=== PATIENT | female | born 1990 | race Caucasian/White ===

== ENCOUNTER 2016-10-06 15:48 | Emergency (ER) | payer OTHER ==
[~2016-10-06] VITALS: Ht 175.3 cm; Wt 72.5 kg
[~2016-10-06 15:48] MED LIST: AZO95TAB3 PO; CIPR250T2 PO
[2016-10-06 15:52] VITALS: BP 103/74; PULSE 69; RESP 16; TEMP 98.4; O2SAT 98
[2016-10-06 16:11] LABS: BLOOD, URINE LARGE (NEG); GLUCOSE,URINE 250 mg/dL (NEG); KETONE, URINE 15 mg/dL (NEG)
[2016-10-06 16:13] LABS: NITRITE,URINE POS (NEG)
[2016-10-06 16:15] LABS: METHOD OF COLLECTION CLEAN CATCH; URINE COLOR ORANGE (YELLW/STRAW)
[2016-10-06 16:16] LABS: WBC, URINE INNUM /hpf (0-5)
[2016-10-06 16:17] LABS: RBC, URINE 100-200 /hpf (0-3)
[2016-10-06 16:18] LABS: COMMENT (UR) CULTURE INDICATED; CULTURE IF INDICATED CULTURE INDICATED; SQUAMOUS EPITHELIAL CELL URINE > 8 /hpf (0-5)
--- NOTE | 2016-10-06 16:26 | PD ---
HPI Chief Complaint: Complaint Time Seen by Provider: 16:21 Travel History International Travel<30 days: No Contact w/Intl Traveler<30days: No Traveled to known affect area: No History of Present Illness HPI 26-year-old female presents to the ED for approximately 24 hour history of dysuria, increased urinary urgency, increased urinary frequency. Symptoms onset gradually. Patient also endorses mild nausea and low back pain. She denies fever, chills, abdominal pain, vomiting, vaginal discharge, risk of . She denies chronic health problems and takes no daily medications. NKDA. PFSH Past Medical History Medical History: Denies Significant Hx Hx Anticoagulant Therapy: No Cardiovascular Problems: No Chemotherapy: No Cerebrovascular Accident: No Diabetes: No Diminished Hearing: No Respiratory: No Immunizations Current: Yes Tetanus Vaccination: > 5 Years Influenza Vaccination: No ?: Not LMP: 09/29/16 : 2 : 2 Past Surgical History Abdominal Surgery: Yes Hysterectomy: No Social History Alcohol Use: Yes (occ) Tobacco Use: No Substance Use: No Allergies-Medications (Allergen,Severity, Reaction): Coded Allergies: No Known Allergies (Verified , 03/10/16) Reported Meds & Prescriptions Reported Meds & Active Scripts Active No Active Prescriptions or Reported Medications Review of Systems Except as stated in HPI: all other systems reviewed are Neg Physical Exam Narrative GENERAL: Well-nourished, well-developed nontoxic appearing white female in no acute distress. SKIN: Focused skin assessment warm/dry. HEAD: Normocephalic. EYES: No scleral icterus. No injection or drainage. NECK: Supple, trachea midline. No JVD or lymphadenopathy. CARDIOVASCULAR: Regular rate and rhythm without murmurs, gallops, or rubs. RESPIRATORY: Breath sounds equal bilaterally. No accessory muscle use. GASTROINTESTINAL: Abdomen soft, nondistended. [id number] suprapubic tenderness. MUSCULOSKELETAL: No cyanosis, or edema. Patient is ambulatory and moves extremities spontaneously. BACK: Nontender without obvious deformity. No CVA tenderness. Data Data Last Documented VS Vital Signs Date Time Temp Pulse Resp B/P Pulse Ox O2 Delivery O2 Flow Rate FiO2 10/06/16 15:52 98.4 69 16 103/74 98 Orders Urinalysis - C+S If Indicated (10/06/16 15:55) Ed Urine Pregnancytest Poc (10/06/16 16:03) Urine Culture (10/06/16 16:00) Sulfamet-Trimeth Ds 800-160 Mg (Bactrim (10/06/16 16:30) Phenazopyridine (Pyridium) (10/06/16 16:30) Ondansetron Odt (Zofran Odt) (10/06/16 16:30) Labs Laboratory Tests Test 10/06/16 16:00 Urine Collection Type CLEAN CATCH Urine Color ORANGE Urine Turbidity MOD Urine pH 5.0 Urine Specific [place] 1.025 Urine Protein 300 OR GREATER mg/dL Urine Glucose (UA) 250 mg/dL Urine Ketones 15 mg/dL Urine Occult Blood LARGE Urine Nitrite POS Urine Bilirubin NEG Urine Leukocyte Esterase MOD Urine RBC 100-200 /hpf Urine WBC INNUM /hpf Urine WBC Clumps OCC Urine Squamous Epithelial > 8 /hpf Cells Microscopic Urinalysis Comment CULTURE INDICATED Urine Collection Time 1600 MDM Medical Decision Making Medical Screen Exam Complete: Yes Emergency Medical Condition: Yes Differential Diagnosis Cystitis versus pyelonephritis versus nephroureterolithiasis versus STI versus other Narrative Course 26-year-old female presents to the ED for approximately 24 hour history of dysuria, increased urinary urgency, increased urinary frequency. Symptoms onset gradually. Patient also endorses mild nausea and low back pain. She denies fever, chills, abdominal pain, vomiting, vaginal discharge, risk of . Vitals reviewed. Physical exam reveals a nontoxic-appearing white female in no acute distress. There is mild suprapubic tenderness but remaining exam is otherwise unremarkable. Urine test negative. UA shows orange urine with 15 ketones, large occult blood, positive nitrate, moderate leukocyte esterase, 100-200 RBCs, innumerable WBCs, occasional WBC clumps. Culture pending. This is acute hemorrhagic cystitis. Patient was administered a dose of Pyridium, Zofran and Bactrim DS. She is prescribed Bactrim DS twice a day 5 days. She is instructed take all medication as prescribed, even if her symptoms resolve, follow up with the primary care provider. She indicated understanding of instructions and was amenable to plan of care. She is stable and discharged home. Diagnosis Primary Impression: Acute hemorrhagic cystitis Referrals: Primary Care Physician Patient Instructions: General Instructions, Urinary Tract Infection in Women ( ED) Additional Instructions: Rest, hydrate. Take all antibiotics as prescribed, even if your symptoms resolve. Continue with AZO for 24 hours. Follow-up with your primary care provider this week. Return to the ED for any urgent or emergent medical condition. Med/Other Pt SpecificInfo: Prescription(s) given Scripts Sulfamethoxazole-Trimethoprim (Bactrim DS)800-160 Mg Tab1 Tab PO BID 5 Days Ref 0 Prov:Claribel Hartman MD 10/06/16 Disposition: 01 DISCHARGE HOME Condition: Stable Bess Kendlal Oct 06, 2016 16:26
[2016-10-06] MEDS ORDERED: BACT800T5 PO (16:27)
[2016-10-06] MEDS ORDERED: ONDANSETRON ODT 4 MG TAB PO ONE (16:30)
[2016-10-06] MEDS ORDERED: PHENAZOPYRIDINE HCL 200 MG TAB PO ONE (16:30)
[2016-10-06] MEDS ORDERED: SULFAMETHOXAZOLE-TRIMETHOPRIM DS 800-160 MG TAB PO ONE (16:30)
== END 2016-10-06 16:43 | disposition home or self-care (01) ==
LOC: PHEFT 15:48
DX: N30.01 Acute cystitis with hematuria (principal)
CPT/HCPCS: 81001; 84703; 87086; 99283

== ENCOUNTER 2016-11-10 15:40 | Emergency (ER) | payer OTHER ==
[~2016-11-10] VITALS: Ht 175.3 cm; Wt 74.2 kg
[~2016-11-10 15:40] MED LIST changes: -AZO95TAB3 PO; +BACT800T5 PO; -CIPR250T2 PO
[2016-11-10 15:44] VITALS: TEMP 98.2
--- NOTE | 2016-11-10 16:05 | PD ---
HPI Chief Complaint: Complaint Time Seen by Provider: 16:03 Travel History International Travel<30 days: No Contact w/Intl Traveler<30days: No Traveled to known affect area: No History of Present Illness HPI 26-year-old female with history of frequent UTIs, presents to the ER today with several days' history of dysuria, urinary urgency, lower back pains, nausea, vomiting. She states that it feels like a UTI. She denies any discharge, fevers, or any other symptoms. She currently rates the discomfort in her back at a 7 out of 10. Modifying Factors: None Associated Signs & Symptoms: Lower back pains, nausea, vomiting, abdominal discomfort, urinary symptoms Risk Factors: History of frequent UTIs PFSH Past Medical History Hx Anticoagulant Therapy: No Cardiovascular Problems: No Chemotherapy: No Cerebrovascular Accident: No Diabetes: No Diminished Hearing: No Genitourinary: Yes (Frequent UTI's) Respiratory: No Immunizations Current: Yes Tetanus Vaccination: > 5 Years Influenza Vaccination: No ?: Not LMP: 2 weeks : 2 : 2 Past Surgical History Surgical History: No Previous Surgery Abdominal Surgery: Yes Hysterectomy: No Social History Alcohol Use: No Tobacco Use: No Substance Use: No Allergies-Medications (Allergen,Severity, Reaction): Coded Allergies: No Known Allergies (Verified , 11/10/16) Reported Meds & Prescriptions Reported Meds & Active Scripts Active No Active Prescriptions or Reported Medications Review of Systems Except as stated in HPI: all other systems reviewed are Neg Physical Exam Narrative GENERAL: Well-developed young white female patient currently in mild distress. Awake and oriented 3. SKIN: Focused skin assessment warm/dry. HEAD: Atraumatic. Normocephalic. EYES: Pupils equal and round. No scleral icterus. No injection or drainage. ENT: No nasal bleeding or discharge. Mucous membranes pink and moist. NECK: Trachea midline. No JVD. CARDIOVASCULAR: Regular rate and rhythm. No murmur appreciated. RESPIRATORY: No accessory muscle use. Clear to auscultation. Breath sounds equal bilaterally. GASTROINTESTINAL: Abdomen soft, mild suprapubic tenderness without guarding or rebound, nondistended. Hepatic and splenic margins not palpable. BACK: No CVA tenderness. No rash. No point tenderness on palpation of the spine. MUSCULOSKELETAL: No obvious deformities. No clubbing. No cyanosis. No edema. NEUROLOGICAL: Awake and alert. No obvious cranial nerve deficits. Motor grossly within normal limits. Normal speech. PSYCHIATRIC: Appropriate mood and affect; insight and judgment normal. Data Data Last Documented VS Vital Signs Date Time Temp Pulse Resp B/P Pulse Ox O2 Delivery O2 Flow Rate FiO2 11/10/16 15:44 98.2 Orders Urinalysis - C+S If Indicated (11/10/16 15:48) Ed Urine Pregnancytest Poc (11/10/16 16:00) Urine Culture (11/10/16 15:50) Labs Laboratory Tests Test 11/10/16 15:50 Urine Color ORANGE Urine Turbidity CLEAR Urine pH 5.5 Urine Specific [place] 1.030 Urine Protein 30 mg/dL Urine Glucose (UA) 100 mg/dL Urine Ketones TRACE mg/dL Urine Occult Blood NEG Urine Nitrite POS Urine Bilirubin NEG Urine Leukocyte Esterase NEG Urine RBC 0-3 /hpf Urine WBC 9-14 /hpf Urine Squamous Epithelial > 8 /hpf Cells Urine Bacteria FEW /hpf Urine Mucus MANY /lpf Microscopic Urinalysis Comment CULTURE INDICATED MDM Medical Decision Making Medical Screen Exam Complete: Yes Emergency Medical Condition: Yes Medical Record Reviewed: Yes Interpretation(s) Laboratory Tests Test 11/10/16 15:50 Urine Color ORANGE (YELLW/STRAW) Urine Protein 30 mg/dL (NEG-TRACE) Urine Glucose (UA) 100 mg/dL (NEG) Urine Ketones TRACE mg/dL (NEG) Urine Nitrite POS (NEG) Urine WBC 9-14 /hpf (0-5) Urine Squamous Epithelial > 8 /hpf (0-5) Cells Urine Bacteria FEW /hpf (NONE) Urine Mucus MANY /lpf (OCC) Differential Diagnosis Dysuria, back pains, nausea and vomiting, urinary symptomsUTI versus musculoskeletal Narrative Course Abdomen is benign and I do not suspect an acute intra-abdominal process. Patient has clear urinary symptoms and UA shows UTI. At this point, my plan would be to treat her UTI and have her follow-up with primary care physician. Return for any worsening in symptoms as necessary. The plan has been discussed with her and she states understanding. Diagnosis Primary Impression: Urinary tract infection Med/Other Pt SpecificInfo: Prescription(s) given Scripts Ondansetron Odt (Zofran Odt)4 Mg Tab4 Mg SL Q6HR PRN (Nausea/Vomiting) #5 TAB Ref 0 Prov:Vj Berg MD 11/10/16 Sulfamethoxazole-Trimethoprim (Bactrim DS)800-160 Mg Tab1 Tab PO BID #14 TAB Ref 0 Prov:Vj Berg MD 11/10/16 Phenazopyridine (Pyridium)100 Mg Orw610 Mg PO Q8H PRN (DYSURIA) #15 TAB Ref 0 Prov:Vj Berg MD 11/10/16 Disposition: 01 DISCHARGE HOME Condition: Stable Vj Berg MD November 10, 2016 16:05
[2016-11-10 16:14] LABS: BLOOD, URINE NEG (NEG); GLUCOSE,URINE 100 mg/dL (NEG); KETONE, URINE TRACE mg/dL (NEG); PH, URINE 5.5 (5.0-8.5)
[2016-11-10 16:25] LABS: NITRITE,URINE POS (NEG); URINE COLOR ORANGE (YELLW/STRAW)
[2016-11-10 16:26] LABS: BACTERIA, URINE FEW /hpf; MUCUS URINE MANY /lpf (OCC); RBC, URINE 0-3 /hpf (0-3); SQUAMOUS EPITHELIAL CELL URINE > 8 /hpf (0-5)
[2016-11-10 16:27] LABS: COMMENT (UR) CULTURE INDICATED; CULTURE IF INDICATED CULTURE INDICATED
[2016-11-10] MEDS ORDERED: ZOFR4TAB3 SL (16:37)
[2016-11-10] MEDS ORDERED: PHEN0.4T PO (16:37)
[2016-11-10] MEDS ORDERED: BACT800T5 PO (16:37)
[2016-11-10] MEDS ORDERED: SULFAMETHOXAZOLE-TRIMETHOPRIM DS 800-160 MG TAB PO ONE (16:45)
[2016-11-10] MEDS ORDERED: PHENAZOPYRIDINE HCL 100 MG TAB PO ONE (16:45)
[2016-11-10] MEDS ORDERED: ONDANSETRON ODT 4 MG TAB PO ONE (16:45)
== END 2016-11-10 17:01 | disposition home or self-care (01) ==
LOC: PHED 15:40
DX: N39.0 Urinary tract infection, site not specified (principal); Z87.440 Personal history of urinary (tract) infections
CPT/HCPCS: 81001; 84703; 87086; 99283

== ENCOUNTER 2017-07-31 02:19 | Emergency (ER) | payer OTHER ==
[~2017-07-31] VITALS: Ht 175.3 cm; Wt 77.5 kg
[~2017-07-31 02:19] MED LIST changes: +PHEN0.4T PO; +ZOFR4TAB3 SL
[2017-07-31 02:26] VITALS: BP 136/93; PULSE 109; RESP 14; TEMP 98.6; O2SAT 100
[2017-07-31 03:01] LABS: AUTOMATED NEUTROPHIL # 9.5 TH/MM3 (1.8-7.7); BASOPHIL # 0.3 TH/MM3 (0-0.2); BASOPHIL % 2.1 % (0.0-2.0); EOSINOPHIL # 0.1 TH/MM3 (0-0.4); EOSINOPHIL % 1.1 % (0.0-4.0); HEMATOCRIT 39.8 % (35.0-46.0); LYMPH % 16.7 % (9.0-44.0); LYMPHOCYTE # 2.1 TH/MM3 (1.0-4.8); MEAN CELL VOLUME 88.1 FL (80.0-100.0); MEAN CORPUSCULAR HEMOGLOBIN 28.9 PG (27.0-34.0); MEAN CORPUSCULAR HGB CONC 32.7 % (32.0-36.0); MEAN PLATELET VOLUME 9.1 FL (7.0-11.0); MONOCYTE # 0.8 TH/MM3 (0-0.9); NEUT % 74.1 % (16.0-70.0); PLATELET COUNT 289 TH/MM3 (150-450); RED BLOOD COUNT 4.52 MIL/MM3 (4.00-5.30); RED CELL DISTRIBUTION WIDTH 12.5 % (11.6-17.2); WHITE BLOOD COUNT 12.8 TH/MM3 (4.0-11.0)
[2017-07-31 03:17] LABS: CALCIUM 8.9 MG/DL (8.5-10.1)
[2017-07-31 03:18] LABS: BICARBONATE 27.9 MEQ/L (21.0-32.0); INTERNATIONAL NORMALIZED RATIO 0.9 RATIO; PROTHROMBIN TIME - PATIENT 9.1 SEC (9.8-11.6)
[2017-07-31 03:21] LABS: CREATININE 0.55 MG/DL (0.50-1.00)
--- NOTE | 2017-07-31 04:46 | PD ---
HPI Chief Complaint: Tool/Die Maker Problem/Complaint Time Seen by Provider: 03:01 Travel History International Travel<30 days: No Contact w/Intl Traveler<30days: No Traveled to known affect area: No History of Present Illness HPI PATIENT STATES THAT SHE WENT TO AN CLINIC IN [place] TO TERMINATE A (11 WEEKS GESTATION)...PER PATIENT SHE HAS HAD 3 ELECTIVE AB'S IN HER LIFETIME AND THIS IS THE FIRST ONE TO DO THIS. PATIENT RETURNS C/O HEAVY VAGINAL BLEEDING....PATIENT STATES SHE IS RH NEG AND WAS GIVEN RHOGAM AT CLINIC. DENIES DIZZINESS/LIGHTHEADED/N/V/D/PRAKASH/CP/BACKPAIN/ PFSH Past Medical History Hx Anticoagulant Therapy: No Cardiovascular Problems: No Chemotherapy: No Cerebrovascular Accident: No Diabetes: No Diminished Hearing: No Genitourinary: Yes (Frequent UTI's) Respiratory: No Immunizations Current: Yes Tetanus Vaccination: < 5 Years Influenza Vaccination: No ?: Not LMP: BLEEDING NOW : 3 : 3 Past Surgical History Abdominal Surgery: Yes Gynecologic Surgery: Yes ( X 3) Hysterectomy: No Social History Alcohol Use: No Tobacco Use: No Substance Use: No Allergies-Medications (Allergen,Severity, Reaction): Coded Allergies: No Known Allergies (Verified Adverse Reaction, Unknown, 07/31/17) Reported Meds & Prescriptions Reported Meds & Active Scripts Active Review of Systems General / Constitutional: No: Fever Eyes: No: Visual changes HENT: No: Headaches Cardiovascular: No: Chest Pain or Discomfort Respiratory: No: Shortness of Breath Gastrointestinal: No: Abdominal Pain Genitourinary: Positive: Vaginal Bleeding Musculoskeletal: No: Pain Skin: No Rash Neurologic: No: Weakness Psychiatric: No: Depression Endocrine: No: Polydipsia Hematologic/Lymphatic: No: Easy Bruising Physical Exam Narrative GENERAL: SKIN: Warm and dry. HEAD: Atraumatic. Normocephalic. EYES: Pupils equal and round. No scleral icterus. No injection or drainage. ENT: No nasal bleeding or discharge. Mucous membranes pink and moist. NECK: Trachea midline. No JVD. CARDIOVASCULAR: Regular rate and rhythm. RESPIRATORY: No accessory muscle use. Clear to auscultation. Breath sounds equal bilaterally. GASTROINTESTINAL: Abdomen soft, non-tender, nondistended. MUSCULOSKELETAL: Extremities without clubbing, cyanosis, or edema. No obvious deformities. NEUROLOGICAL: Awake and alert. No obvious cranial nerve deficits. Motor grossly within normal limits. Five out of 5 muscle strength in the arms and legs. Normal speech. PSYCHIATRIC: Appropriate mood and affect; insight and judgment normal. Data Data Last Documented VS Vital Signs Date Time Temp Pulse Resp B/P (MAP) Pulse Ox O2 Delivery O2 Flow Rate FiO2 07/31/17 02:26 98.6 109 14 136/93 (107) 100 Orders Orders Complete Blood Count With Diff (07/31/17 02:36) Basic Metabolic Panel (Bmp) (07/31/17 02:36) Prothrombin Time / Inr (Pt) (07/31/17 02:36) Act Partial Throm Time (Ptt) (07/31/17 02:36) Complete Rh (07/31/17 02:36) Us Pelvis Comp Tool/Die Maker/Non-Preg (07/31/17 03:03) Ed Discharge Order (07/31/17 05:26) Labs Laboratory Tests Test 07/31/17 02:50 White Blood Count 12.8 TH/MM3 Red Blood Count 4.52 MIL/MM3 Hemoglobin 13.0 GM/DL Hematocrit 39.8 % Mean Corpuscular Volume 88.1 FL Mean Corpuscular Hemoglobin 28.9 PG Mean Corpuscular Hemoglobin Concent 32.7 % Red Cell Distribution Width 12.5 % Platelet Count 289 TH/MM3 Mean Platelet Volume 9.1 FL Neutrophils (%) (Auto) 74.1 % Lymphocytes (%) (Auto) 16.7 % Monocytes (%) (Auto) 6.0 % Eosinophils (%) (Auto) 1.1 % Basophils (%) (Auto) 2.1 % Neutrophils # (Auto) 9.5 TH/MM3 Lymphocytes # (Auto) 2.1 TH/MM3 Monocytes # (Auto) 0.8 TH/MM3 Eosinophils # (Auto) 0.1 TH/MM3 Basophils # (Auto) 0.3 TH/MM3 CBC Comment DIFF FINAL Differential Comment Prothrombin Time 9.1 SEC Prothromb Time International Ratio 0.9 RATIO Activated Partial Thromboplast Time 21.5 SEC Blood Urea Nitrogen 15 MG/DL Creatinine 0.55 MG/DL Random Glucose 102 MG/DL Calcium Level 8.9 MG/DL Sodium Level 139 MEQ/L Potassium Level 3.7 MEQ/L Chloride Level 104 MEQ/L Carbon Dioxide Level 27.9 MEQ/L Anion Gap 7 MEQ/L Estimat Glomerular Filtration Rate 133 ML/MIN MDM Medical Decision Making Medical Screen Exam Complete: Yes Emergency Medical Condition: Yes Medical Record Reviewed: Yes Differential Diagnosis RPOC V INCOMPLETE AB Narrative Course HEMODYNAMICALLY STABLE, H/H NORMAL , NORMAL LIVER/KIDNEY/ FUNCTIONS...ULTRASOUND SHOWS A THICKENED ENDOMETRIAL STRIPE Diagnosis Primary Impression: Incomplete without complications Patient Instructions: General Instructions, Miscarriage (ED) Departure Forms: Tests/Procedures, Work Release Enter return to work date: Aug 04, 2017 Additional Instructions: FOLLOW UP WITH CLINIC FOR REEVALUATION, TODAY YOUR ULTRASOUND SHOWED PRODUCTS OF CONCEPTION ARE STILL REMAINING IN UTERUS. YOU WILL SPONTANEOUSLY PASS THEM ON YOUR OWN OR YOU CAN RETURN TO CLINIC FOR POSSIBLE REPEAT PROCEDURE. Scripts Tramadol (Ultram) 50 Mg Tab 50 MG PO Q6H Y for PAIN, #14 TAB 0 Refills Prov: Adolfo Noble MD 07/31/17 Disposition: 01 DISCHARGE HOME Condition: Stable Adolfo Noble MD Jul 31, 2017 04:46
--- NOTE | 2017-07-31 05:20 | RADRPT ---
EXAM DATE/TIME: 07/31/2017 04:01 [facility] COMPARISON: No previous studies available for comparison. INDICATIONS : Pelvic pain and bleeding. MEDICAL HISTORY : UTIs. SURGICAL HISTORY : x3. ENCOUNTER: Initial ACUITY: 1 day PAIN SCORE: 8/10 LOCATION: Bilateral pelvis MEASUREMENTS: UTERUS: 10.5 x 6.8 x 5.7 cm ENDOMETRIAL STRIPE: >20 mm RIGHT OVARY: 2.9 x 1.9 x 1.5 cm LEFT OVARY: 2.1 x 2.0 x 2.0 cm FINDINGS: UTERUS: Uterus is anteverted. There is mild heterogeneous echotexture of the myometrium. Endometrial stripe is enlarged and measures up to 2.1 cm in thickness and the echotexture of the thickened endometrium is heterogeneous but predominantly hyperechoic. No increased flow in the endometrium by color Dopple r. No endometrial fluid is seen. RIGHT OVARY: Ovary contains no mass or significant cystic lesion. LEFT OVARY: Ovary contains no mass or significant cystic lesion. MISCELLANEOUS: No free fluid. CONCLUSION: Diffusely thickened endometrium with heterogeneous echotexture, but no anechoic fluid. Vince Delvalle MD on July 31, 2017 at 5:15 Board Certified Radiologist. This report was verified electronically.
[2017-07-31] MEDS ORDERED: TRAM50 PO (05:35)
[2017-07-31 05:42] VITALS: BP 115/75
== END 2017-07-31 05:58 | disposition home or self-care (01) ==
LOC: PHED 02:19
DX: O03.4 Incomplete spontaneous abortion without complication (principal)
CPT/HCPCS: 76856; 80048; 85025; 85610; 85730; 86901; 99284